=== PATIENT | male | born 1955 | race Caucasian/White ===

== ENCOUNTER 2018-03-19 15:10 | Emergency (ER) | payer OTHER ==
[2018-03-19] MEDS: RABIES VACCINE HUMAN 2.5 INTERNATIONAL UNITS/ML VIAL (90675) IM (16:45)
[2018-03-19] MEDS: RABIES IMMUNE GLOBULIN 1500 INTERNATIONAL UNITS/10 ML VIAL (90375) IM (16:47)
== END 2018-03-19 17:28 | disposition home or self-care (01) ==
LOC: M ED 15:10
DX: Z20.3 Contact with and (suspected) exposure to rabies (principal); Z23 Encounter for immunization; S61.251A Open bite of left index finger without damage to nail, initial encounter; W55.01XA Bitten by cat, initial encounter; Y92.410 Unspecified street and highway as the place of occurrence of the external cause; Z88.8 Allergy status to other drugs, medicaments and biological substances; Z88.1 Allergy status to other antibiotic agents; Z91.018 Allergy to other foods; Z91.013 Allergy to seafood
CPT/HCPCS: 90675

== ENCOUNTER 2019-01-18 00:04 | Emergency (ER) | payer OTHER ==
[~2019-01-18] VITALS: Ht 167.6 cm; Wt 70.5 kg
[~2019-01-18 00:04] MED LIST: /AUGM25TA OR; ACET65TA OR; ALBUTEROL INH; AMIT10TA2 OR; ASPI81TA31 OR; FLEXERIL OR; HYDR25TA6 OR; LISI20TA5 OR; LOPR50TA OR; LYRI75CA OR; MEDR8TAB OR; VENTAER IN; VERA120T OR; VICO5TAB OR
[2019-01-18 00:57] LABS: BASO % 0.4 % (0.0-1.0); EOS % 0.5 % (0.0-3.0); HEMATOCRIT 39.6 % (42.0-52.0); HEMOGLOBIN 13.9 g/dl (13.5-17.5); LYMPH # 1.6 10^3/uL (1.5-4.5); LYMPH % 20.1 % (24.0-44.0); MEAN CORPUSCULAR HGB CONC 35.1 g/dl (32.0-36.5); MEAN CORPUSCULAR VOLUME 102.6 fl (80.0-96.0); MONO # 0.7 10^3/uL (0.0-0.8); MONO % 8.7 % (0.0-5.0); NEUTROPHILS # 5.4 10^3/uL (1.8-7.7); NEUTROPHILS % 70.2 % (36.0-66.0); PLATELET COUNT, AUTOMATED 195 10^3/uL (150-450); RED BLOOD COUNT 3.86 10^6/uL (4.30-6.10); WHITE BLOOD COUNT 7.7 10^3/uL (4.0-10.0)
[2019-01-18 01:28] LABS: ALBUMIN 3.2 GM/DL (3.2-5.2); ALT/SGPT 32 U/L (12-78); BILIRUBIN,DIRECT 0.1 MG/DL (0.0-0.2); BILIRUBIN,TOTAL 0.2 MG/DL (0.2-1.0); BLOOD UREA NITROGEN 22 MG/DL (7-18); CALCIUM LEVEL 8.4 MG/DL (8.8-10.2); CARBON DIOXIDE LEVEL 25 MEQ/L (21-32); CHLORIDE LEVEL 104 MEQ/L (98-107); GLOMERULAR FILTRATION RATE > 60.0 (>49); GLUCOSE, FASTING 110 MG/DL (70-100); LIPASE 71 U/L (73-393); POTASSIUM SERUM 4.2 MEQ/L (3.5-5.1); SODIUM LEVEL 136 MEQ/L (136-145); TOTAL PROTEIN 8.3 GM/DL (6.4-8.2)
[2019-01-18] MEDS ORDERED: NS 1,000 ML IV ONE (02:15)
--- NOTE | 2019-01-18 05:44 | REPVR ---
EXAM: CT Abdomen and Pelvis Without Contrast EXAM DATE/TIME: 01/18/2019 3:57 AM CLINICAL HISTORY: 63 years old, male; Abdominal pain; Flank; Right; Additional info: Right flank pain, hematuria TECHNIQUE: Imaging protocol: Axial computed tomography images of the abdomen and pelvis without contrast. Coronal and sagittal reformatted images were created and reviewed. Radiation optimization: All CT scans at this facility use at least one of these dose optimization techniques: automated exposure control; mA and/or kV adjustment per patient size (includes targeted exams where dose is matched to clinical indication); or iterative reconstruction. COMPARISON: No relevant prior studies available. Study limitations: Evaluation for mass, inflammatory change, including bowel wall/fold thickening, viscera, and vasculature, is suboptimal without contrast. FINDINGS: LUNG BASES: Mild atelectasis and/or pulmonary parenchymal scarring. VASCULAR: Mild fusiform dilation of the infrarenal abdominal aorta, up to 2.9 cm. Prominence of the common iliac vessels, up to 1.7 cm on the right. 2.9 cm soft tissue prominence at the left common iliac bifurcation may represent aneurysm or summation artifact with tortuous vascularity. Consider imaging with contrast for confirmation. Aortoiliac and femoral atherosclerosis. Vascular patency is not assessed on this exam. PERITONEAL : No free air. Small amount of free fluid within the pelvis. GI: No hiatal hernia. The stomach contains some fluid and gas. The distal esophagus and stomach are not sufficiently distended to evaluate wall thickening or exclude fold thickening. Nonspecific fluid-filled loops of small bowel are seen within the abdomen and pelvis. Bowel wall and fold thickening is not reliably assessed, secondary to lack of any contrast. No focal mesenteric inflammatory stranding seen. No gastroenteritis would be difficult to exclude. Small mesenteric lymph nodes are seen. Scattered fecal material and gas within portions of the colon and rectum. The cecum is distended up to 7.7 cm with fecal material. No pericolonic inflammatory stranding. There is diverticulosis but no evidence of acute diverticulitis. Portions of the distal colon and rectum appear slightly thick walled but this may be artifact secondary to insufficient distention. The appendix does not appear inflamed. HEPATOBILIARY, PANCREAS, SPLEEN: Sagittal hepatic length is 15 cm. Partially contracted gallbladder. No calcified gallstones seen. No pancreatic inflammation. Spleen not enlarged. ADRENALS, KIDNEYS, BLADDER, RETROPERITONEAL: Adrenals within normal limits. No hydronephrosis. Punctate calculus noted at the right renal hilum. This could be vascular. No renal calculi otherwise. Course of the ureters is difficult to identify but no suspicious calcifications are seen bilaterally. No calculi within the urinary bladder. Given the history of hematuria, consider imaging with contrast as clinically appropriate. No perinephric stranding or fluid. The urinary bladder is slightly distended. There is prominence of the urinary bladder wall. This could be correlated for cystitis. Enlarged prostate impressing into the base of the bladder. Clinical correlation and followup is advised. MUSCULOSKELETAL: Severe degenerative changes of the lumbar spine. IMPRESSION: No hydronephrosis or obstructing calculi seen. Genitourinary findings and recommendations discussed above. Small amount of free fluid within the pelvis but uncertain cause. Nonspecific gastrointestinal findings. Mild fusiform dilation of the abdominal aorta up to 2.9 cm. A distal left common iliac artery aneurysm cannot be excluded, as discussed above. Other findings and limitations discussed above. Electronically signed by: Chas Lozano On 01/18/2019 05:43:44 AM
[2019-01-18 06:31] VITALS: BP 158/92
--- NOTE | 2019-01-20 12:51 | ED PDOC ---
Post-Departure Follow-Up certified letter sent to pt re formal reading of ct abd/p for fu Jayla Moctezuma MD Jan 20, 2019 12:51
== END 2019-01-18 06:37 | disposition home or self-care (01) ==
LOC: M ED 00:04
DX: N23 Unspecified renal colic (principal); Z72.0 Tobacco use; Z88.1 Allergy status to other antibiotic agents; Z88.8 Allergy status to other drugs, medicaments and biological substances

== ENCOUNTER 2019-06-22 12:34 | Emergency (ER) | payer OTHER ==
[~2019-06-22] VITALS: Ht 167.6 cm; Wt 67.9 kg
[2019-06-22 13:14] LABS: BASO % 0.4 % (0.0-1.0); EOS # 0.2 10^3/uL (0.0-0.5); EOS % 2.7 % (0.0-3.0); HEMATOCRIT 42.7 % (42.0-52.0); HEMOGLOBIN 14.3 g/dl (13.5-17.5); LYMPH # 2.3 10^3/uL (1.5-5.0); LYMPH % 28.6 % (24.0-44.0); MEAN CORPUSCULAR HGB CONC 33.5 g/dl (32.0-36.5); MEAN CORPUSCULAR VOLUME 101.7 fl (80.0-96.0); MONO # 0.6 10^3/uL (0.0-0.8); MONO % 7.5 % (0.0-5.0); NEUTROPHILS # 4.9 10^3/uL (1.5-8.5); NEUTROPHILS % 60.4 % (36.0-66.0); PLATELET COUNT, AUTOMATED 216 10^3/uL (150-450); WHITE BLOOD COUNT 8.2 10^3/uL (4.0-10.0)
--- NOTE | 2019-06-22 13:25 | REP ---
Chest x-ray: Two views. History: Chronic cough. Comparison study: December 08, 2015. Findings: The lungs are hyperinflated but free of focal infiltrate. Pleural angles are sharp. Heart size is normal. The thoracic aorta somewhat tortuous as before. There are orthopedic anchors in the left shoulder. Impression: No acute disease. Hyperinflation. Electronically Signed by Flaco Palomino MD 06/22/2019 01:17 P
[2019-06-22 13:36] LABS: BLOOD UREA NITROGEN 19 MG/DL (7-18); CALCIUM LEVEL 8.6 MG/DL (8.8-10.2); CARBON DIOXIDE LEVEL 27 MEQ/L (21-32); CHLORIDE LEVEL 106 MEQ/L (98-107); CREATININE FOR GFR 0.99 MG/DL (0.70-1.30); GLOMERULAR FILTRATION RATE > 60.0 (>49); GLUCOSE, FASTING 108 MG/DL (70-100); NT-PRO BNP 91 PG/ML (<125); POTASSIUM SERUM 4.3 MEQ/L (3.5-5.1); SODIUM LEVEL 140 MEQ/L (136-145)
[2019-06-22] MEDS ORDERED: IPRATROPIUM 0.5MG/ALBUTEROL 2.5MG INH SOL UD 3ML (DUONEB)(J7620) NEB ONE (14:30)
[2019-06-22 15:09] LABS: CK-MB VALUE MASS 2.5 NG/ML (<3.6); CPK CREATINE PHOSPHOKINASE 141 U/L (39-308); MB/CK RELATIVE INDEX 1.77 (< OR =4); TROPONIN I < 0.02 NG/ML (< 0.10)
[2019-06-22 15:26] VITALS: BP 150/98
[2019-06-22] MEDS ORDERED: AMLO10TA PO (15:50)
[2019-06-22] MEDS ORDERED: FLON27.5 NARES (16:10)
--- NOTE | 2019-06-23 00:54 | ECGEPIP ---
[facility] - ED Test Date: 2019-06-22 Pat Name: JONATHON SANCHEZ Department: Room: - Gender: Male Family Law Attorney: LOREN : 1955 Requested By: CASH Ewing PA-C Order Number: [id number] Reading MD: Ibrahima Palencia Measurements Intervals [place] Rate: 59 P: -44 NH: 117 QRS: -55 QRSD: 118 T: 26 QT: 408 QTc: 406 Interpretive Statements SINUS BRADYCARDIA WITH SHORT NH INTERVAL Left axis deviation SEPTAL MYOCARDIAL INFARCTION, POSSIBLY ACUTE Nonspecific ST-T wave abnormalities Comparison tracing not on file Electronically Signed on 06-23-2019 0:53:56 EST by Ibrahima Palencia
== END 2019-06-22 16:41 | disposition home or self-care (01) ==
LOC: M ED 12:34
DX: R05 Cough (principal); I10 Essential (primary) hypertension; R06.02 Shortness of breath; L40.8 Other psoriasis; Z88.1 Allergy status to other antibiotic agents; Z88.8 Allergy status to other drugs, medicaments and biological substances; F17.210 Nicotine dependence, cigarettes, uncomplicated

== ENCOUNTER 2024-03-10 17:58 | Inpatient (IN) | payer MEDICARE ==
[~2024-03-10] VITALS: Ht 167.6 cm; Wt 66.0 kg
[~2024-03-10 17:58] MED LIST changes: +AMLO10TA PO; +FLON27.5 NARES
[2024-03-10 18:43] LABS: BASO % 0.4 % (0.0-1.0); EOS # 0.1 10^3/uL (0.0-0.5); EOS % 1.6 % (0.0-3.0); HEMATOCRIT 42.7 % (42.0-52.0); HEMOGLOBIN 14.9 g/dl (13.5-17.5); LYMPH # 1.8 10^3/uL (1.5-5.0); LYMPH % 21.7 % (24.0-44.0); MEAN CORPUSCULAR HEMOGLOBIN 36.3 pg (27.0-33.0); MEAN CORPUSCULAR HGB CONC 34.9 g/dl (32.0-36.5); MEAN CORPUSCULAR VOLUME 103.9 fl (80.0-96.0); MONO # 0.7 10^3/uL (0.0-0.8); MONO % 8.4 % (2.0-8.0); NEUTROPHILS # 5.5 10^3/uL (1.5-8.5); NEUTROPHILS % 67.5 % (36.0-66.0); PLATELET COUNT, AUTOMATED 200 10^3/uL (150-450); RED BLOOD COUNT 4.11 10^6/uL (4.30-6.10); WHITE BLOOD COUNT 8.2 10^3/uL (4.0-10.0)
[2024-03-10 19:04] LABS: LIPASE 25 U/L (12-53)
[2024-03-10 19:06] LABS: ALBUMIN 3.3 G/DL (3.2-5.2); ALKALINE PHOSPHATASE 114 U/L (46-116); ALT/SGPT 27 U/L (7.0-40); AST/SGOT 35 U/L (<34); BILIRUBIN,DIRECT 0.1 MG/DL (<0.4); BILIRUBIN,TOTAL 0.5 MG/DL (0.3-1.2); TOTAL PROTEIN 10.2 G/DL (5.7-8.2)
[2024-03-10] MEDS: NS 500 ML IV ONE (19:40)
[2024-03-10] MEDS ORDERED: ISOVUE-370 76% 100ML VIAL As Ordered ONE (19:47)
[2024-03-10] MEDS: hydrALAZINE 20MG/ML 1ML VIAL IV ONE ×3 (19:50→21:54)
[2024-03-10] MEDS: ACETAMINOPHEN TAB 650MG DOSE (2X325MG) PO ONE (19:50)
[2024-03-10 20:51] LABS: CK-MB VALUE MASS < 1.0 NG/ML (<3.6)
[2024-03-10 20:52] LABS: BLOOD UREA NITROGEN 19 MG/DL (9-23); CALCIUM LEVEL 8.7 MG/DL (8.3-10.6); CARBON DIOXIDE LEVEL 25 MMOL/L (20-31); CHLORIDE LEVEL 105 MMOL/L (98-107); CREATININE FOR GFR 1.19 MG/DL (0.70-1.30); GLOMERULAR FILTRATION RATE > 60.0 (>49); GLUCOSE, FASTING 87 MG/DL (74-106); POTASSIUM SERUM 4.2 MMOL/L (3.5-5.1); SODIUM LEVEL 133 MMOL/L (136-145)
[2024-03-10 20:53] LABS: CPK CREATINE PHOSPHOKINASE 127 U/L (46-171); MB/CK RELATIVE INDEX 0.78 (< OR =4)
[2024-03-10 21:03] LABS: APPEARANCE, URINE CLEAR (CLEAR); BACTERIA, URINE AUTO NEGATIVE (NEGATIVE); BILIRUBIN, URINE AUTO NEGATIVE (NEGATIVE); BLOOD, URINE BLOOD NEGATIVE (NEGATIVE); COLOR, URINE YELLOW (YELLOW); GLUCOSE, URINE (UA) AUTO NEGATIVE (NEGATIVE); KETONE, URINE AUTO TRACE mg/dL (NEGATIVE); LEUKOCYTE ESTERASE, URINE AUTO NEGATIVE (NEGATIVE); NITRITE, URINE AUTO NEGATIVE (NEGATIVE); PROTEIN, URINE AUTO 2+ mg/dL (NEGATIVE); RBC, URINE AUTO 1 /HPF (0-3); SPECIFIC GRAVITY URINE AUTO 1.024 (1.002-1.035); SQUAMOUS EPITHELIAL CELL UR AU 0 /HPF (0-6); UROBILINOGEN, URINE AUTO 0.2 mg/dL (0.0-2.0); WBC, URINE AUTO 1 /HPF (0-3)
[2024-03-10] MEDS ORDERED: HOME MED LIST COMPLETE! XX SCH (23:00)
[2024-03-10] MEDS ORDERED: IBUP200C28 PO (23:00)
[2024-03-11] VITALS (17 sets, daily range): BP systolic 127–195; BP diastolic 78–128; TEMP 97.2–98.6; O2SAT 96–99
[2024-03-11] MEDS: hydroCHLOROthiazide 12.5 MG CAPSULE PO ONE (01:54)
[2024-03-11] MEDS: IBUPROFEN 400MG TAB PO ONE (01:54)
[2024-03-11] MEDS: lisinopriL 5 MG TAB PO ONE (01:55)
[2024-03-11] MEDS: ENOXAPARIN 60MG/0.6ML SYRINGE (J1650 PER 10MG) SC SCH (01:56)
[2024-03-11] MEDS: hydrALAZINE 20MG/ML 1ML VIAL IV PRN (01:56)
[2024-03-11] MEDS: MORPHINE 2 MG/ML 1ML VIAL IV ONE (01:57)
[2024-03-11] MEDS: LABETALOL 100MG/20ML VIAL IV PRN (02:19)
[2024-03-11] MEDS: hydroCHLOROthiazide 12.5 MG CAPSULE PO SCH (10:05)
[2024-03-11] MEDS: lisinopriL 5 MG TAB PO SCH (10:06)
[2024-03-11] MEDS: ACETAMINOPHEN 500 MG TAB PO PRN (15:09)
[2024-03-11] MEDS: ANALGESIC BALM CRM 3OZ TOP SCH (16:00)
[2024-03-12] VITALS (7 sets, daily range): BP systolic 140–150; BP diastolic 69–92; TEMP 97.1–97.9; O2SAT 97–100
[2024-03-12] MEDS: ACETAMINOPHEN TAB 650MG DOSE (2X325MG) PO ONE (02:00)
[2024-03-12] MEDS: DICLOFENAC EPOLAMINE 1.3% PATCH TOP ONE (02:52)
[2024-03-12] MEDS: KETOROLAC 30 MG/ML 1ML VIAL IV ONE (03:00)
[2024-03-12] MEDS: LIDOCAINE 5% (LIDODERM) PATCH TD ONE (03:00)
[2024-03-12 05:23] LABS: BASO % 0.5 % (0.0-1.0); EOS # 0.2 10^3/uL (0.0-0.5); HEMOGLOBIN 13.8 g/dl (13.5-17.5); LYMPH # 2.3 10^3/uL (1.5-5.0); LYMPH % 30.2 % (24.0-44.0); MEAN CORPUSCULAR HEMOGLOBIN 36.5 pg (27.0-33.0); MEAN CORPUSCULAR HGB CONC 35.4 g/dl (32.0-36.5); MEAN CORPUSCULAR VOLUME 103.2 fl (80.0-96.0); MONO # 0.8 10^3/uL (0.0-0.8); MONO % 9.9 % (2.0-8.0); NEUTROPHILS # 4.4 10^3/uL (1.5-8.5); PLATELET COUNT, AUTOMATED 194 10^3/uL (150-450); RED BLOOD COUNT 3.78 10^6/uL (4.30-6.10); WHITE BLOOD COUNT 7.8 10^3/uL (4.0-10.0)
[2024-03-12 05:59] LABS: CALCIUM LEVEL 8.1 MG/DL (8.3-10.6); CREATININE FOR GFR 1.75 MG/DL (0.70-1.30); GLOMERULAR FILTRATION RATE 41.7 (>49); MAGNESIUM LEVEL 2.1 MG/DL (1.8-2.4); POTASSIUM SERUM 3.3 MMOL/L (3.5-5.1)
[2024-03-12] MEDS: TAMSULOSIN 0.4 MG CAP PO ONE (06:07)
[2024-03-12] MEDS: NS 500 ML IV ONE ×2 (08:19→13:46)
[2024-03-12] MEDS: amLODIPine 5 MG TAB PO SCH (08:19)
[2024-03-12] MEDS ORDERED: LIDOCAINE 5% (LIDODERM) PATCH TD SCH (09:00)
[2024-03-12] MEDS: NS 1,000 ML IV SCH (13:47)
[2024-03-12] MEDS ORDERED: TAMSULOSIN 0.4 MG CAP PO SCH (21:00)
[2024-03-12] MEDS: TERAZOSIN 1 MG CAP PO SCH (21:01)
[2024-03-13 03:52] VITALS: BP 164/99; TEMP 97.6; O2SAT 99
[2024-03-13 04:00] VITALS: BP 164/99; TEMP 97.6; O2SAT 99
[2024-03-13 05:47] LABS: HEMATOCRIT 32.6 % (42.0-52.0); MEAN CORPUSCULAR HEMOGLOBIN 36.1 pg (27.0-33.0); MEAN CORPUSCULAR VOLUME 103.2 fl (80.0-96.0); PLATELET COUNT, AUTOMATED 162 10^3/uL (150-450); RED BLOOD COUNT 3.16 10^6/uL (4.30-6.10); WHITE BLOOD COUNT 5.7 10^3/uL (4.0-10.0)
[2024-03-13 05:52] LABS: HEMOGLOBIN 11.4 g/dl (13.5-17.5)
[2024-03-13 06:07] LABS: CALCIUM LEVEL 7.5 MG/DL (8.3-10.6); CREATININE FOR GFR 1.35 MG/DL (0.70-1.30); GLOMERULAR FILTRATION RATE 56.3 (>49); MAGNESIUM LEVEL 1.7 MG/DL (1.8-2.4); POTASSIUM SERUM 3.6 MMOL/L (3.5-5.1)
[2024-03-13 08:12] VITALS: BP 170/100; TEMP 97.8; O2SAT 100
[2024-03-13] MEDS: METOPROLOL SUCC *XL* 25MG TAB (TopROL *XL*) PO SCH (08:21)
[2024-03-13] MEDS: amLODIPine 5 MG TAB PO SCH (08:21)
[2024-03-13 10:15] VITALS: BP 158/82
[2024-03-13] MEDS ORDERED: METO1TAB32 PO (12:18)
[2024-03-13] MEDS ORDERED: TERA1CA PO (12:18)
[2024-03-13] MEDS ORDERED: AMLO1TAB24 PO (12:18)
== END 2024-03-13 13:00 | disposition home or self-care (01) | DRG 305 ==
LOC: M ED 17:58 → M ED INP 03-11 01:39 → M PCU 03-11 02:27
PROVIDERS: ADMIT Family Medicine; ATTEND Family Medicine
DX: I16.9 Hypertensive crisis, unspecified (principal); N17.9 Acute kidney failure, unspecified; E87.1 Hypo-osmolality and hyponatremia; F32.A Depression, unspecified; F41.9 Anxiety disorder, unspecified; I10 Essential (primary) hypertension; R79.89 Other specified abnormal findings of blood chemistry; M54.50 Low back pain, unspecified; G89.29 Other chronic pain; F17.210 Nicotine dependence, cigarettes, uncomplicated; G43.909 Migraine, unspecified, not intractable, without status migrainosus; E87.6 Hypokalemia; Z88.8 Allergy status to other drugs, medicaments and biological substances; Z88.1 Allergy status to other antibiotic agents

== ENCOUNTER → 2024-03-27 | Outpatient (REF) | payer MEDICARE ==
[~2024-03-27] MED LIST changes: +AMLO1TAB24 PO; +IBUP200C28 PO; +METO1TAB32 PO; +TERA1CA PO
[2024-03-27 17:47] LABS: BLOOD UREA NITROGEN 27 MG/DL (9-23); CALCIUM LEVEL 9.2 MG/DL (8.3-10.6); CARBON DIOXIDE LEVEL 28 MMOL/L (20-31); CHLORIDE LEVEL 104 MMOL/L (98-107); CREATININE FOR GFR 1.12 MG/DL (0.70-1.30); GLOMERULAR FILTRATION RATE > 60.0 (>49); GLUCOSE, FASTING 71 MG/DL (74-106); POTASSIUM SERUM 4.7 MMOL/L (3.5-5.1); SODIUM LEVEL 135 MMOL/L (136-145)
== END ==
LOC: M LAB REF 16:34
PROVIDERS: ATTEND Physician Assistant
DX: Z87.448 Personal history of other diseases of urinary system (principal)

== ENCOUNTER → 2024-05-20 | Outpatient (CLI) | payer MEDICARE, OTHER | LOC: M RAD 09:51 | PROVIDERS: ATTEND Physician Assistant | DX: R10.9 Unspecified abdominal pain (principal) ==

== ENCOUNTER → 2024-09-17 | Outpatient (CLI) | payer MEDICARE, OTHER ==
[~2024-09-17] MED LIST changes: -TERA1CA PO; +TERA1CAP62 PO
== END ==
LOC: M RAD 08:30
PROVIDERS: ATTEND Physician Assistant
DX: R10.9 Unspecified abdominal pain (principal); K44.9 Diaphragmatic hernia without obstruction or gangrene

== ENCOUNTER → 2024-09-24 | Outpatient (REF) | payer MEDICARE, OTHER, MEDICAID ==
[2024-09-24 18:35] LABS: BASO % 0.3 % (0.0-1.0); EOS # 0.2 10^3/uL (0.0-0.5); EOS % 3.3 % (0.0-3.0); HEMATOCRIT 37.1 % (42.0-52.0); HEMOGLOBIN 12.7 g/dl (13.5-17.5); LYMPH # 1.8 10^3/uL (1.5-5.0); LYMPH % 25.6 % (24.0-44.0); MEAN CORPUSCULAR HEMOGLOBIN 36.3 pg (27.0-33.0); MEAN CORPUSCULAR HGB CONC 34.2 g/dl (32.0-36.5); MONO # 0.7 10^3/uL (0.0-0.8); MONO % 9.5 % (2.0-8.0); NEUTROPHILS # 4.2 10^3/uL (1.5-8.5); NEUTROPHILS % 61.2 % (36.0-66.0); PLATELET COUNT, AUTOMATED 224 10^3/uL (150-450); WHITE BLOOD COUNT 6.9 10^3/uL (4.0-10.0)
[2024-09-24 18:37] LABS: LIPASE 23 U/L (12-53)
[2024-09-24 18:39] LABS: ALBUMIN 3.1 G/DL (3.2-5.2); ALKALINE PHOSPHATASE 103 U/L (40-129); ALT/SGPT 23 U/L (7.0-40); AST/SGOT 22 U/L (<34); BILIRUBIN,TOTAL 0.2 MG/DL (0.3-1.2); BLOOD UREA NITROGEN 24 MG/DL (9-23); CALCIUM LEVEL 8.9 MG/DL (8.3-10.6); CARBON DIOXIDE LEVEL 27 MMOL/L (20-31); CHLORIDE LEVEL 104 MMOL/L (98-107); CHOLESTEROL LEVEL 146 MG/DL (<200); CREATININE FOR GFR 1.17 MG/DL (0.70-1.30); GLOMERULAR FILTRATION RATE > 60.0 (>49); GLUCOSE, FASTING 87 MG/DL (74-106); HDL CHOLESTEROL 39.4 MG/DL (>40); LDL CHOLESTEROL 93.2 MG/DL (<100); NON-HDL-C 106.6 MG/DL; POTASSIUM SERUM 4.8 MMOL/L (3.5-5.1); SODIUM LEVEL 137 MMOL/L (136-145); TOTAL PROTEIN 9.7 G/DL (5.7-8.2); TRIGLYCERIDES LEVEL 67 MG/DL (<150)
[2024-09-24 18:40] LABS: TOTAL 25(OH) VITAMIN D 48.3 NG/ML (20.0-100.0)
[2024-09-24 19:05] LABS: CREATININE, URINE 191.1 MG/DL
[2024-09-24 19:06] LABS: MAU/CREAT RATIO 180.5 MCG/MG (0.0-30.0)
== END ==
LOC: M LAB REF 17:33
PROVIDERS: ATTEND Physician Assistant
DX: I10 Essential (primary) hypertension (principal); R10.9 Unspecified abdominal pain; E55.9 Vitamin D deficiency, unspecified

== ENCOUNTER → 2024-10-06 | Outpatient (CLI) | payer MEDICARE, OTHER ==
[~2024-10-06] MED LIST changes: +ISOVUE-370 76% 100ML VIAL As Ordered ONE
== END ==
LOC: M RAD 10:51
PROVIDERS: ATTEND Physician Assistant
DX: K42.9 Umbilical hernia without obstruction or gangrene (principal)
CPT/HCPCS: 74177; Q9967